=== PATIENT | male | born 1965 | race Caucasian/White ===

== ENCOUNTER 2023-08-31 20:33 | Emergency (ER) | payer SELFPAY ==
[2023-08-31 20:34] VITALS: BP 180/102
--- NOTE | 2023-08-31 21:50 | ED.GENMED ---
History of Present Illness
General
Chief Complaint: Fall
Source: patient and records
Exam Limitations: none
Time Seen by Provider: 08/31/23 20:50
Nursing documentation reviewed up to this point in time: agreed with
Travel History
Have you had any contact with someone who has COVID-19?: No
Do you have any symptoms of coronavirus? Fever > 100 degrees, chills, cough, shortness of breath, sore throat, loss of taste or smell, muscle aches, or headache?: No
History of Present Illness
History of Present Illness:
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 This happened about 2 hours ago and the patient
took Tylenol and Advil. Patient denies loss of consciousness but felt dazed. Patient denies any nausea or vomiting. Patient denies any focal weakness or ataxia. Patient denies any speech difficulties. Other than photophobia patient denies any
visual changes. Patient has mild neck pain but this seems to be chronic. Patient was able to weight-bear afterwards but with pain. Patient denies chest pain or abdominal pain. Patient denies any numbness or paresthesias.
Past History
Past History
ED Past Medical History: Other (HIV) and Other (Diverticulitis)
ED Past Surgical History: Orthopedic (L5S1 fusion, L4L5 fusion, knee surgery)
Social History
Tobacco: Former smoker
Alcohol: Occasional
Drug: None
Personal: Partner
Living: with family
Employment: Employed
Family History
Family History: Other (Noncontributory)
Review of Systems
Review of Systems
All Other Systems: Not applicable
Phy Exam
Physical Exam
Physical Exam:
Physical Exam
General: No apparent mild distress, alert and appropriate, well nourished, well hydrated
HENT: Normocephalic with left periorbital ecchymosis and swelling as well as a right eyebrow abrasion, supple with no tracheal deviation or contusion. Mild nasal tenderness but no septal hematoma or deformity
Eyes: Clear sclera, conjuctiva without injection, extraocular muscles intact
Heart: Regular rhythm and rate. No S3, S4. No murmur. No NVD
Lungs: No respiratory distress, no stridor, lung sounds clear and equal bilaterally, chest wall symmetrical and nontender
Abdomen: Soft, nontender, BS good
Neuro: Alert and oriented x 3, CN II - XII intact, no motor focality, no cerebellar dysfunction
Skin: Abrasion to right eyebrow
Psychiatric: well kept. interactive and cooperative
Extremities: No edema, cyanosis. Good and equal peripheral pulses. Left hip tender but full range of motion with only mild pain
Musculoskeletal: Minimal midline cervical tenderness without crepitus or deformity. No thoracic or lumbar spine tenderness
Course
Orders/Labs/Results
Orders:
Orders
08/31/23 20:41
CT Head W/o Iv Contrast Urgent
Comment:
Reason For Exam: FALL
Cervical Spine wo Contrast CT [CT Cervical Spine W/o Iv Contr] Urgent
Comment:
Reason For Exam: FALL
08/31/23 21:03
Hip, Left 2-3 Views [CR Hip - LT w/wo Pel 2-3 Vw*] Urgent
Comment:
Reason For Exam: fall
Include a pelvis x-ray?: Yes
Vital Signs
Initial and Last Documented VS:
Initial Vital Signs
Temp Pulse Resp BP Pulse Ox
98.1 F 96 18 180/102 98
08/31/23 20:34 08/31/23 20:34 08/31/23 20:34 08/31/23 20:34 08/31/23 20:34
Last Documented Vital Signs
Temp Pulse Resp BP Pulse Ox
98.1 F 96 18 180/102 98
08/31/23 20:34 08/31/23 20:34 08/31/23 20:34 08/31/23 20:34 08/31/23 20:34
*Radiology
Radiology exam reviewed: radiology read reviewed (CT of head and neck unremarkable, left hip negative)
*Pulse Oximetry
Patient hypoxic: no
*EKG
Interpreted by ED Provider?: NA
*Compugraph Operator Interpretation
Rate: Compugraph Operator- N/A
*Critical Care Note
Total Time (30-74mins, 75-104mins- exclusive of procedures): Not Applicable
ED Attending Note
-
Portions of this chart may have been created with voice recognition software.� Occasional wrong word or��sound alike� substitutions may have occurred due to the inherent limitations of voice recognition software.
Discharge Plan
Departure
Patient Disposition: Home (Routine Discharge)
Date of Disposition: 08/31/23
Time of Disposition: 21:55
Patient with high blood pressure during this ER visit?: Yes
Condition: Fair
Covid-19: Not Applicable
Discharge Problem:
Left facial contusion, Mild closed head injury, Contusion of left hip
Instructions: Head Injury in Adults (DC), Contusion (DC), Minor Head Injury (DC), Using Cold for Pain, BLOOD PRESSURE
Prescriptions:
No Action
doxycycline hyclate 100 MG capsule
100 mg PO DAILY
sertraline 50 MG tablet
100 mg PO DAILY
ockbios-nog-zrxec-tenof alafen [Genvoya] 1 EACH tablet
1 ea PO DAILY
ropinirole 2 MG tablet
2 mg PO HS
Activity Restrictions/Additional Instructions:
Continue present medications. Follow-up with your family physician in a few days. Use 1000 mg of acetaminophen or 400 mg of ibuprofen every 6 hours for pain. Rest.
Interventions
Interventions:
*Risk Screen - Suicide Last Done: 08/31/23 20:34
*General Assessment Last Done: 08/31/23 20:53
*Neglect/Abuse Screening Last Done: 08/31/23 20:34
ED- Fall Risk Assessment Last Done: 08/31/23 20:53
*ED COVID-19 Vaccine History Last Done: 08/31/23 20:53
ED-Musculoskeletal Assessment Last Done: 08/31/23 20:53
ED- Neurological Assessment Last Done: 08/31/23 20:53
[2023-08-31 22:03] VITALS: BP 164/79
== END 2023-08-31 22:08 | disposition home or self-care (01) ==
LOC: EMR 20:33
PROVIDERS: EMERGENCY PHYSICIAN Emergency Medicine
DX: S09.90XA Unspecified injury of head, initial encounter (principal); S00.83XA Contusion of other part of head, initial encounter; W01.0XXA Fall on same level from slipping, tripping and stumbling without subsequent striking against object, initial encounter; R03.0 Elevated blood-pressure reading, without diagnosis of hypertension; F17.200 Nicotine dependence, unspecified, uncomplicated
CPT/HCPCS: 99285; 70450; 72125; 73502

== ENCOUNTER → 2023-11-20 14:51 | Outpatient (REF) | payer OTHER, SELFPAY | LOC: HWEVLT 14:51 | PROVIDERS: ATTENDING PHYSICIAN Radiology Vascular & Interventional Radiology | DX: I83.893 Varicose veins of bilateral lower extremities with other complications (principal) | CPT/HCPCS: 93970 ==

== ENCOUNTER 2024-06-01 18:29 | Emergency (ER) | payer OTHER, SELFPAY ==
[2024-06-01] VITALS (7 sets, daily range): BP systolic 127–150; BP diastolic 64–88; BMI 36.0
[2024-06-01 19:06] LABS: % Basophils 0.6 % (0-2); % Eosinophils 1.3 % (0-6); % Immature Granulocytes 0.2 % (0-0.5); % Lymphocytes 27.2 % (20.5-51.1); % Monocytes 11.3 % (1.7-9.3); % Neutrophils 59.4 % (42.2-75.2); Absolute Basophils 0.1 10^3/uL (0-0.2); Absolute Eosinophils 0.1 10^3/uL (0-0.7); Absolute Lymphocytes 2.3 10^3/uL (1.2-3.4); Hematocrit 38.9 % (39.0-52.0); Hemoglobin 13.6 g/dL (13.0-18.0); Mean Corpuscular Hgb 29.9 pg (27.0-31.0); Mean Corpuscular Volume 85.5 fL (80.0-94.0); Mean Platelet Volume 9.6 fL (7.4-10.4); Nucleated Red Blood Cells % 0 % (-); Platelet Count 161 10^3/uL (130-400); Red Blood Cell Count 4.55 10^6/uL (4.70-6.10); Red Cell Dist. Width 12.3 % (11.5-14.5); White Blood Cell Count 8.4 10^3/uL (4.8-10.8)
[2024-06-01 19:23] LABS: ALT (SGPT) 22 U/L (0-50); AST (SGOT) 33 U/L (17-59); Albumin 4.6 g/dl (3.5-5.0); Alkaline Phosphatase 69 U/L (38-126); Blood Urea Nitrogen 27 mg/dl (9-20); Calcium 9.5 mg/dl (8.4-10.2); Carbon Dioxide 26 mmol/L (22-30); Chloride 102 mmol/L (98-107); Glucose 107 mg/dl (70-99); Potassium 3.9 mmol/L (3.5-5.1); Sodium 139 mmol/L (135-145); Total Bilirubin 0.7 mg/dl (0.2-1.3); Total Protein 7.2 g/dl (6.3-8.2); eGFR > 60.00
[2024-06-01 19:25] LABS: Urine Albumin Trace (Neg - Trace); Urine Bilirubin Negative (Negative); Urine Character Clear (Clear); Urine Color Yellow; Urine Glucose Negative (Negative); Urine Ketone Negative (Negative); Urine Leukocyte Negative (Negative); Urine Nitrite Negative (Negative); Urine Occult Blood 1+ (Negative); Urine Specific Gravity 1.025 (<1.030); Urine Urobilinogen Negative (Neg - 1+)
[2024-06-01 20:05] LABS: Urine White Cell 0-2 /HPF (0-5)
[2024-06-01] MEDS: NSS 1000 IV (22:30)
[2024-06-01] MEDS: ZOFRAN 4 MG IV (22:31)
[2024-06-01] MEDS: DILAUDID 0.5 MG IV (22:31)
--- NOTE | 2024-06-01 22:33 | ED.GENMED ---
History of Present Illness
<HUGO Baca - Last Filed: 06/02/24 01:05>
General
Chief Complaint: Urinary Symptoms
Source: patient
Exam Limitations: none
Time Seen by Provider: 06/01/24 22:11
History of Present Illness
History of Present Illness:
This is a 58 year old male that comes in with c/o abd pain. States that it is more like his bladder. States that this started last Saturday and has been constant. states that it hurts when he sits, stands or walks. States that he has been
nauseated. Denies any fever, chills, chest pain, SOB, vomiting, diarrhea, headache, dizziness, urinary burning.
Past History
<HUGO Baca - Last Filed: 06/02/24 01:05>
Past History
ED Past Medical History: HTN, Hypercholesterolemia, Other (HIV, Neck pain, Diverticulitis, ) and Other (Diverticulitis)
ED Past Surgical History: Orthopedic (L5-S1 fusion, L4L5 fusion, knee surgery bilateral for Meniscus, Left knee replaced)
Social History
Tobacco: Former smoker
Alcohol: Occasional
Drug: None
Personal: Single
Living: with family
Employment: Employed
Family History
Family History: Other (Noncontributory)
Review of Systems
<HUGO Baca - Last Filed: 06/02/24 01:05>
Review of Systems
All Other Systems: ROS reviewed and negative except as documented in HPI and ROS
Constitutional: Reports no symptoms; Denies fever or chills
EENT: Reports no symptoms
Respiratory: Reports no symptoms; Denies cough or trouble breathing
Cardiac: Reports no symptoms; Denies chest pain
ABD/GI: Reports abdominal pain and nausea; Denies vomiting or diarrhea
: Reports no symptoms; Denies dysuria, frequency or urgency
Musculoskeletal: Reports no symptoms
Skin: Reports no symptoms
Neurological: Reports no symptoms; Denies dizzy or headache
Psychiatric: Reports no symptoms
Phy Exam
<HUGO Baca - Last Filed: 06/02/24 01:05>
General Physical Exam
General Presentation: mild distress
General age: appears stated age
General Skin: warm and dry
General Habitus: normal
General Mental: alert
General Hydration: dry mucous membranes
ENT Exam
ENT Exam: TM's normal, pharynx normal and neck supple
Eye Exam
Eye Exam: EOMI
Cardiovascular Exam
Cardiovascular Exam: regular rate/rhythm, no edema, no murmur and normal peripheral pulses
Pulmonary Exam
Pulmonary Exam: lungs clear, no respiratory distress, no rales, chest non tender, no crackles, no rhonchi, no wheezing and no cough
Gastrointestinal Exam
Gastrointestinal Exam: normal bowel sounds, soft, no organomegaly, no pulsatile mass, non distended and tender (right sided abd pain with palpation)
Musculoskeletal Exam
Musculoskeletal Exam: full ROM and no edema
Skin Exam
Skin Exam: normal color, warm/dry, no rash and no petechia
Psychiatric Exam
Psychiatric Exam: normal mood/affect
Course
<HUGO Baca - Last Filed: 06/02/24 01:05>
Orders/Labs/Results
Orders:
Orders
06/01/24 18:49
Complete Blood Count/With Diff Urgent
Comprehensive Metabolic Panel Urgent
Urinalysis Reflex To Culture Urgent
Date Specimen was Collected: 06/01/24
Time Specimen was Collected: 18:41
Urine Microscopic Reflex Cult Urgent
06/01/24 22:21
CT Abd/pelvis W Iv Cont Urgent
Comment:
Reason For Exam: Right lower abd pain
0.9% Sodium Chloride 1000 ml [Nss] 1,000 ml IV BOLUS
HYDROmorphone [Dilaudid] 0.5 mg IV NOW STA
Ondansetron Injectable [Zofran] 4 mg IV NOW STA
06/02/24 00:50
LevoFLOXacin [Levaquin] 500 mg PO NOW STA
MetroNIDAZOLE [Flagyl] 500 mg PO NOW STA
Abnormal Lab Results
06/01/24
18:49
RBC 4.55 L 10^6/uL
(4.70-6.10)
Hct 38.9 L %
(39.0-52.0)
Absolute Monos (auto) 1.0 H 10^3/uL
(0.1-0.6)
Monocytes % 11.3 H %
(1.7-9.3)
BUN 27 H mg/dl
(9-20)
Glucose 107 H mg/dl
(70-99)
Ur Occult Blood Reflex 1+ A
(Negative)
Urine RBC 7-10 A /HPF
(0-2)
06/01/24 18:49
06/01/24 18:49
Dehydration. Glucose nonfasting. Urine negative for infection.
Vital Signs
Initial and Last Documented VS:
Initial Vital Signs
Temp Pulse Resp BP Pulse Ox
99.6 F 99 18 150/88 95
06/01/24 18:36 06/01/24 18:36 06/01/24 18:36 06/01/24 18:36 06/01/24 18:36
Last Documented Vital Signs
Temp Pulse Resp BP Pulse Ox
99.0 F 72 18 128/68 99
06/01/24 22:00 06/02/24 02:00 06/02/24 02:00 06/02/24 02:00 06/02/24 02:00
<Sumanth Bush PA-C - Last Filed: 06/02/24 09:53>
Orders/Labs/Results
Orders:
Orders
06/01/24 18:49
Complete Blood Count/With Diff Urgent
Comprehensive Metabolic Panel Urgent
Urinalysis Reflex To Culture Urgent
Date Specimen was Collected: 06/01/24
Time Specimen was Collected: 18:41
Urine Microscopic Reflex Cult Urgent
06/01/24 22:21
CT Abd/pelvis W Iv Cont Urgent
Comment:
Reason For Exam: Right lower abd pain
0.9% Sodium Chloride 1000 ml [Nss] 1,000 ml IV BOLUS
HYDROmorphone [Dilaudid] 0.5 mg IV NOW STA
Ondansetron Injectable [Zofran] 4 mg IV NOW STA
06/02/24 00:50
LevoFLOXacin [Levaquin] 500 mg PO NOW STA
MetroNIDAZOLE [Flagyl] 500 mg PO NOW STA
Abnormal Lab Results
06/01/24
18:49
RBC 4.55 L 10^6/uL
(4.70-6.10)
Hct 38.9 L %
(39.0-52.0)
Absolute Monos (auto) 1.0 H 10^3/uL
(0.1-0.6)
Monocytes % 11.3 H %
(1.7-9.3)
BUN 27 H mg/dl
(9-20)
Glucose 107 H mg/dl
(70-99)
Ur Occult Blood Reflex 1+ A
(Negative)
Urine RBC 7-10 A /HPF
(0-2)
06/01/24 18:49
06/01/24 18:49
Vital Signs
Initial and Last Documented VS:
Initial Vital Signs
Temp Pulse Resp BP Pulse Ox
99.6 F 99 18 150/88 95
06/01/24 18:36 06/01/24 18:36 06/01/24 18:36 06/01/24 18:36 06/01/24 18:36
Last Documented Vital Signs
Temp Pulse Resp BP Pulse Ox
99.0 F 72 18 128/68 99
06/01/24 22:00 06/02/24 02:00 06/02/24 02:00 06/02/24 02:00 06/02/24 02:00
<HUGO Baca - Last Filed: 06/02/24 01:05>
MDM/Problems Addressed
Differential Diagnosis Includes:
UTI, Appendicitis, Diverticulitis
MDM/Problems Addressed:
This is a 58 year old male that comes in with c/o abd pain. States that this started last Saturday and has been constant.
Will check labs and get CT scan. IV fluids and medicate for pain
Back into see patient. explained that the CT shows that he has Diverticulitis. Will start patient on antibiotics and given him his first dose here. Patient to follow up with the family doctor. Patient to return with fever, increased or changing
pain, or any other concerns.
Chronic conditions affecting care:
Diverticulitis
Acute Exacerbation and/or Progression of Chronic Illness:
Diverticulitis
<HUGO Baca - Last Filed: 06/02/24 01:05>
*Radiology
Radiology exam reviewed: radiology read reviewed (CT scan- sigmoid diverticulitis. Moderate wall thickening along the mid sigmoid colon. Moderate stranding. No free fluid or free air. NO appendicitis. No evidence of small bowel obstruction.
Unremarkable CT appearance of the gallbladder, biliary tract, and pancreas. No evidence of ) and other (CT cont- hydroureteronephrosis of obstructing stone. Unremarkable appearance of the pelvic viscera. NO AAA)
*Pulse Oximetry
Patient hypoxic: no
*EKG
Interpreted by ED Provider?: NA
Rate: EKG- N/A
*Croze Cutter Helper Interpretation
Rate: Croze Cutter Helper- N/A
*Critical Care Note
Total Time (30-74mins, 75-104mins- exclusive of procedures): Not Applicable
<Sumanth Bush PA-C - Last Filed: 06/02/24 09:53>
Update Note
Update Note:
06/02/2024 0952AM: Received discrepancy report from radiology regarding L renal atrophy of uncertain significance. Pt notified by phone, advised PCP f/u to discuss potential vascular workup on a non urgent basis. Pt verbalized understanding
ED Attending Note
<HUGO Baca - Last Filed: 06/02/24 01:05>
-
Portions of this chart may have been created with voice recognition software.� Occasional wrong word or��sound alike� substitutions may have occurred due to the inherent limitations of voice recognition software.
Discharge Plan
Departure
Patient Disposition: Home (Routine Discharge)
Date of Disposition: 06/02/24
Time of Disposition: 00:58
Patient with high blood pressure during this ER visit?: Yes
Condition: Good
Covid-19: Not Applicable
Discharge Problem:
Diverticulitis
Instructions: Diverticulitis (DC), BLOOD PRESSURE
Prescriptions:
New
levofloxacin 500 mg tablet
500 mg PO DAILY 9 Days Qty: 9 0RF
metronidazole 500 mg tablet
500 mg PO TID Qty: 29 0RF
No Action
doxycycline hyclate 100 MG capsule
100 mg PO DAILY
sertraline 50 MG tablet
100 mg PO DAILY
Genvoya 1 EACH tablet
1 ea PO DAILY
rosuvastatin 10 mg Tablet
10 mg PO DAILY
Referrals:
UNKNOWN - PT NOT,INTERVIEWE [Family Provider] -
Activity Restrictions/Additional Instructions:
As discussed, your blood work shows that you were dehydrated. Please increase your water intake to 8-8oz glasses daily. Your CT shows that you have Diverticulitis. You have been given your first dose of antibiotic here and prescriptions have been
sent to your Pharmacy. Please take as directed until finished. Please eat a good diet. Follow up with the family doctor for recheck. IF YOU HAVE INCREASED OR CHANGING PAIN, OR YOU HAVE FEVER THAT IS NOT CONTROLLED OR YOU HAVE ANY OTHER CONCERNS
PLEASE RETURN TO THE EMERGENCY ROOM.
Interventions
Interventions:
*Risk Screen - Suicide Last Done: 06/01/24 21:13
*General Assessment Last Done: 06/01/24 21:09
*Neglect/Abuse Screening Last Done: 06/01/24 21:13
ED- Fall Risk Assessment Last Done: 06/01/24 21:15
*ED COVID-19 Vaccine History Last Done: 06/01/24 21:09
*Nursing Disposition Last Done: 06/02/24 02:30
ED-Male Genitourinary Assessment Last Done: 06/01/24 21:15
Discharge Date and Time
Discharge Date/Time: 06/02/24 02:30
Print Language: MOZAMBICAN
[2024-06-02] VITALS: BP 125/78
[2024-06-02 01:00] VITALS: BP 118/69
[2024-06-02] MEDS: LEVAQUIN 500 MG PO (01:07)
[2024-06-02] MEDS: FLAGYL 500 MG PO (01:07)
[2024-06-02 02:00] VITALS: BP 128/68
== END 2024-06-02 02:30 | disposition home or self-care (01) ==
LOC: EMR 18:29
PROVIDERS: Student in an Organized Health Care Education/Training Program; EMERGENCY PHYSICIAN Student in an Organized Health Care Education/Training Program
DX: K57.32 Diverticulitis of large intestine without perforation or abscess without bleeding (principal); R11.0 Nausea; I10 Essential (primary) hypertension; E78.00 Pure hypercholesterolemia, unspecified; N26.1 Atrophy of kidney (terminal); Z21 Asymptomatic human immunodeficiency virus [HIV] infection status; Z87.891 Personal history of nicotine dependence; Z98.1 Arthrodesis status; Z96.652 Presence of left artificial knee joint
CPT/HCPCS: 99285; 96375; 96361; 96374; 74177; 80053; 81003; 81015; 85025; Q9967